=== PATIENT | female | born 1975 | race Caucasian/White ===

== ENCOUNTER 2025-03-02 10:29 | Outpatient (CLI) | payer MEDICARE, MEDICAID ==
--- NOTE | 2025-03-02 15:19 | RADIOLOGY REPORT ---
INDICATION: ABDOMINAL PAIN TECHNIQUE: Multiple real-time sonographic images of the abdomen were obtained. COMPARISON: None FINDINGS: The liver is homogenous in echogenicity. The liver measures 17cm. No intrahepatic biliary ductal dilatation is noted. The gallbladder wall measures 0.2 cm and is unremarkable. No gallstones or sludge is seen. The commo n duct measures 0.3 cm and is unremarkable. No pericholecystic fluid is noted. 5 mm gallbladder poly p. The right kidney measures 10cm. No hydronephrosis. The left kidney measures 11cm. No hydronephrosis . The spleen measures 10cm, within normal limits. The echogenicity is within normal limits. The pancreas is not well visualized due to obscuration from bowel gas. The visualized portions of the IVC and aorta are grossly unremarkable. IMPRESSION: 5 mm gallbladder polyp.
== END 2025-03-02 23:59 | disposition home or self-care (01) ==
LOC: RAD 10:29
PROVIDERS: ATTEND Nurse Practitioner
DX: K82.4 Cholesterolosis of gallbladder (principal); R10.9 Unspecified abdominal pain
CPT/HCPCS: 76700